=== PATIENT | female | born 1940 | race Caucasian/White ===

== ENCOUNTER 2018-08-12 08:47 | Outpatient (CLI) | payer OTHER, MEDICAID ==
[~2018-08-12 08:47] MED LIST: ACT35 PO; ASPI-858 PO; CLOP75TA2 PO; COR25 PO; EXEN10PE4 PO; EZET10TA PO; FURO80TA86 PO; LANS30CA53 PO; LANTUS INSULIN SQ; LIP20 PO; LOSA50TA3 PO; MAGN84TA4 PO; NITR0.4T13 SL; OMEG1CAP48 PO; REGULAR INSULIN SQ; SPIR25TA6 PO; TRICOR PO
[2018-08-12] MEDS ORDERED: BARIUM SULFATE 135 ML SUSP.RECON (E-Z-HD) PO ONE (09:12)
== END 2018-08-12 21:19 | disposition home or self-care (01) ==
LOC: SRD 08:47
PROVIDERS: ATTEND Internal Medicine
DX: K22.4 Dyskinesia of esophagus (principal); K44.9 Diaphragmatic hernia without obstruction or gangrene
CPT/HCPCS: 74220-TC

== ENCOUNTER 2019-10-24 14:50 | Emergency (ER) | payer OTHER, MEDICAID ==
[~2019-10-24] VITALS: Ht 152.4 cm; Wt 54.4 kg
[~2019-10-24 14:50] MED LIST changes: -ACT35 PO; +ALEN10TA7 PO; +ALPR0.5T8 PO; +ASPI-1153 PO; -ASPI-858 PO; +BISA-79 PO; -CLOP75TA2 PO; -COR25 PO; +DONE10TA44 PO; +EMPA10TA PO; -EXEN10PE4 PO; -EZET10TA PO; +FER300L PO; +FURO-150 PO; -FURO80TA86 PO; +ISO10 PO; -LANS30CA53 PO; -LANTUS INSULIN SQ; +LEVO88TA5 PO; -LIP20 PO; +LIP40 PO; -LOSA50TA3 PO; -MAGN84TA4 PO; +MECL12.584 PO; +METO25TA3 PO; -NITR0.4T13 SL; -OMEG1CAP48 PO; +OXYB5TAB11 PO; -REGULAR INSULIN SQ; +SACU1TAB PO; +SERT50TA PO; +SSREG SUBCUT; -TRICOR PO
--- NOTE | 2019-10-24 14:50 | NUR ---
BROUGHT BACK TO BED #7 AND TRIAGED .REPORT GIVEN TO GUNNAR
[2019-10-24 15:05] VITALS: BP_SYST 138
--- NOTE | 2019-10-24 15:10 | NUR ---
RECEIVED AND IN ROOM, SANDRA TO ASSUME CARE.
--- NOTE | 2019-10-24 15:21 | NUR ---
UP AMBULATING TO BATHROOM, STEADY GAIT W/USE OF CANE
--- NOTE | 2019-10-24 15:35 | NUR ---
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
--- NOTE | 2019-10-24 15:36 | NUR ---
C/O FREQUENT FALLS WITH HEADACHE, PT CONCERNED FOR DIZZINESS AND FALLING, ALERT, CALM, RESP UNLABORED, SKIN WARM AND DRY. COMMUNICATES CLEARLY, NAD
--- NOTE | 2019-10-24 15:45 | NUR ---
ALERT, CALM, RESP UNLABORED, COMMUNICATES CLEARLY, NO DISTRESS OBSERVED
--- NOTE | 2019-10-24 16:56 | NUR ---
BACK FROM CT. STATES FEELING BETTER, RESP UNLABORED, SKIN WARM AND DRY
--- NOTE | 2019-10-24 17:48 | NUR ---
Patient given written and verbal discharge instructions and verbalizes understanding. ER MD discussed with patient the results and treatment provided. Patient in stable condition. ID arm band removed. Rx of IBU given. Patient educated on pain management and to follow up with PMD. Pain Scale 2/10 Opportunity for questions provided and answered. Medication side effect fact sheet provided.
[2019-10-24 17:49] VITALS: BP_SYST 129
[2019-10-24] MEDS ORDERED: methylPREDNISolone SOD SUCC/PF 62.5 MG/ML VIAL IVP SCH (18:00)
== END 2019-10-24 17:48 | disposition home or self-care (01) ==
LOC: SED 14:50
DX: S09.90XA Unspecified injury of head, initial encounter (principal); J44.9 Chronic obstructive pulmonary disease, unspecified; E11.9 Type 2 diabetes mellitus without complications; Z79.899 Other long term (current) drug therapy; Z79.82 Long term (current) use of aspirin; Z79.4 Long term (current) use of insulin; W18.39XA Other fall on same level, initial encounter; Y93.89 Activity, other specified; Y92.89 Other specified places as the place of occurrence of the external cause; Y99.8 Other external cause status
CPT/HCPCS: 70450-TC; 81002; 99284

== ENCOUNTER 2019-12-18 15:05 | Emergency (ER) | payer OTHER, MEDICAID ==
[~2019-12-18] VITALS: Ht 154.9 cm; Wt 54.4 kg
[~2019-12-18 15:05] MED LIST changes: +ALEN10TA25 PO; -ALEN10TA7 PO; -ASPI-1153 PO; +ASPI-1393 PO; +MECL-174 PO; -MECL12.584 PO; -OXYB5TAB11 PO; +OXYB5TAB16 PO
[2019-12-18 15:09] VITALS: BP_SYST 124
[2019-12-18 16:16] LABS: BASOPHILS % (AUTO) 0.8 % (0.0-2.0); EOSINOPHILS # (AUTO) 0.1 K/uL (0.0-0.4); EOSINOPHILS % (AUTO) 1.6 % (0.0-4.0); HEMATOCRIT 39.8 % (36-48); HEMOGLOBIN 13.2 g/dL (12.0-16.0); LYMPHOCYTES # (AUTO) 1.1 K/uL (1.0-5.5); LYMPHOCYTES % (AUTO) 22.7 % (20.5-51.5); MEAN CORPUSCULAR HEMOGLOBIN 30 pg (27-31); MEAN CORPUSCULAR HGB CONC 33 % (32-36); MEAN CORPUSCULAR VOLUME 91 fL (79.0-98.0); MONOCYTES # (AUTO) 0.3 K/uL (0.0-1.0); MONOCYTES % (AUTO) 6.4 % (1.7-9.3); NEUTROPHILS # (AUTO) 3.3 K/uL (1.8-7.7); NEUTROPHILS % (AUTO) 68.5 % (40.0-70.0); PLATELET COUNT (AUTO) 120 K/uL (130-430); RED BLOOD CELL COUNT(AUTO) 4.37 MIL/uL (4.2-6.2); RED CELL DISTRIBUTION WIDTH 13.5 % (9.0-15.0); WHITE BLOOD COUNT (AUTO) 4.8 K/uL (4.8-10.8)
[2019-12-18 16:45] LABS: ANION GAP 7 (5-15); CALCIUM 8.7 mg/dL (8.4-11.0); CHLORIDE 97 mmol/L (98-107); POTASSIUM 3.8 mmol/L (3.5-5.1); SODIUM SERUM 135 mmol/L (136-145); UREA NITROGEN, BLOOD 26 mg/dL (8-21)
[2019-12-18] MEDS ORDERED: INSULIN REGULAR, HUMAN 10 UNITS/0.1 ML INJ SUBCUT ONE (16:45)
[2019-12-18 16:51] LABS: ALANINE AMINOTRANSFERASE 21 U/L (12-78); ALBUMIN 3.7 g/dL (3.4-4.8); ASPARTATE AMINOTRANSFERASE 20 U/L (10-37); TOTAL BILIRUBIN 0.4 mg/dL (0.0-1.0)
[2019-12-18 16:56] LABS: GLUCOSE 427 mg/dL (70-99)
[2019-12-18 17:12] LABS: PROTHROMBIN TIME 10.2 SECS (9.5-12.5)
[2019-12-18] MEDS ORDERED: INSULIN REGULAR, HUMAN 10 UNITS/0.1 ML INJ ONE (17:33)
[2019-12-18 18:35] VITALS: BP_SYST 122
== END 2019-12-18 18:36 | disposition home or self-care (01) ==
LOC: SED 15:05
DX: R09.89 Other specified symptoms and signs involving the circulatory and respiratory systems (principal); J44.9 Chronic obstructive pulmonary disease, unspecified; E11.65 Type 2 diabetes mellitus with hyperglycemia; Z95.0 Presence of cardiac pacemaker; Z85.9 Personal history of malignant neoplasm, unspecified; Z86.73 Personal history of transient ischemic attack (TIA), and cerebral infarction without residual deficits; Z79.899 Other long term (current) drug therapy; Z79.82 Long term (current) use of aspirin; Z79.4 Long term (current) use of insulin
CPT/HCPCS: 36415; 71045; 80053; 82009; 82962; 83880; 84145; 84484; 85025; 85610; 85730; 93005; 99285; J1815

== ENCOUNTER 2020-06-01 05:21 | Inpatient (IN) | payer OTHER, SELFPAY ==
[~2020-06-01] VITALS: Ht 149.9 cm; Wt 54.0 kg
[~2020-06-01 05:21] MED LIST changes: -MECL-174 PO; +MECL-225 PO
[2020-06-01 05:33] VITALS: BP_SYST 150
[2020-06-01 05:46] LABS: BASOPHILS # (AUTO) 0.1 K/uL (0.0-0.2); BASOPHILS % (AUTO) 0.9 % (0.0-2.0); EOSINOPHILS # (AUTO) 0.1 K/uL (0.0-0.4); EOSINOPHILS % (AUTO) 1.5 % (0.0-4.0); HEMATOCRIT 43.4 % (36-48); HEMOGLOBIN 14.8 g/dL (12.0-16.0); LYMPHOCYTES # (AUTO) 1.5 K/uL (1.0-5.5); LYMPHOCYTES % (AUTO) 23.4 % (20.5-51.5); MEAN CORPUSCULAR HEMOGLOBIN 31 pg (27-31); MEAN CORPUSCULAR HGB CONC 34 % (32-36); MEAN CORPUSCULAR VOLUME 89 fL (79.0-98.0); MONOCYTES # (AUTO) 0.5 K/uL (0.0-1.0); MONOCYTES % (AUTO) 7.6 % (1.7-9.3); NEUTROPHILS # (AUTO) 4.1 K/uL (1.8-7.7); NEUTROPHILS % (AUTO) 66.6 % (40.0-70.0); PLATELET COUNT (AUTO) 151 K/uL (130-430); RED BLOOD CELL COUNT(AUTO) 4.86 MIL/uL (4.2-6.2); RED CELL DISTRIBUTION WIDTH 13.7 % (9.0-15.0); WHITE BLOOD COUNT (AUTO) 6.2 K/uL (4.8-10.8)
[2020-06-01 05:59] LABS: ANION GAP 9 (5-15); CHLORIDE 99 mmol/L (98-107); CREATININE 0.85 mg/dL (0.55-1.30); GLUCOSE 358 mg/dL (70-99); SODIUM SERUM 139 mmol/L (136-145); UREA NITROGEN, BLOOD 17 mg/dL (8-21)
[2020-06-01 06:03] LABS: PROTHROMBIN TIME 9.9 SECS (9.5-12.5)
[2020-06-01 06:15] LABS: ALANINE AMINOTRANSFERASE 28 U/L (12-78); ALBUMIN 4.7 g/dL (3.4-4.8); ASPARTATE AMINOTRANSFERASE 22 U/L (10-37); FREE T4 (FREE THYROXINE) 1.1 ng/dl (0.8-1.5); THYROID STIMULATING HORMONE 2.89 uIu/mL (0.36-3.74); TOTAL BILIRUBIN 0.8 mg/dL (0.0-1.0)
[2020-06-01 06:19] LABS: ALCOHOL, BLOOD < 3 mg/dL (<10)
[2020-06-01] MEDS ORDERED: TRAM50TA PO (06:19)
[2020-06-01] MEDS ORDERED: VITD2000 PO (06:19)
[2020-06-01] MEDS ORDERED: MIRT15TA7 PO (06:19)
[2020-06-01] MEDS ORDERED: RANO500T2 PO (06:19)
[2020-06-01] MEDS ORDERED: NPH INSULIN SUBCUT (06:19)
[2020-06-01] MEDS ORDERED: INSULIN REGULAR, HUMAN 10 UNITS/0.1 ML INJ IVP ONE (07:00)
[2020-06-01 07:13] LABS: BILIRUBIN,URINE NEGATIVE (NEGATIVE); CLARITY/URINE CLEAR (CLEAR); COLOR,URINE YELLOW (YELLOW); GLUCOSE,URINE 3+ (NEGATIVE); KETONES,URINE TRACE (NEGATIVE); LEUKOCYTE ESTERASE ,URINE NEGATIVE (NEGATIVE); NITRITE, URINE NEGATIVE (NEGATIVE); PH,URINE 5.5 (5.0-8.0); PROTEIN URINE TRACE (NEGATIVE); UROBILINOGEN,URINE 0.2 (0.2-1.0)
[2020-06-01 07:18] LABS: BLOOD, URINE TRACE (NEGATIVE)
[2020-06-01 07:21] LABS: BARBITURATE, URINE NEGATIVE (NEG <=200); BENZODIAZEPINE, URINE NEGATIVE (NEG <=150); CANNABINOID, URINE NEGATIVE (NEG <=50); COCAINE, URINE NEGATIVE (NEG <=150); METHAMPHETAMINES SCREEN,URINE NEGATIVE (NEG <=500); OPIATE, URINE NEGATIVE (NEG <=100); PHENCYCLIDINE SCREEN,URINE NEGATIVE (NEG <=25); UR TRICYCLIC ANTIDEPRESSANTS NEGATIVE (NEG <=300); URINE AMPHETAMINE NEGATIVE (NEG <=500); URINE METHADONE NEGATIVE (NEG <=200); URINE OXYCODONE SCREEN NEGATIVE (NEG <=100); URINE PROPOXYPHENE SCREEN NEGATIVE (NEG <=300)
[2020-06-01 07:30] LABS: BACTERIA,URINE FEW /HPF (None Seen); WBC,URINE 0-3 /HPF (0-3)
[2020-06-01] MEDS ORDERED: GLUCOSE (DEXTROSE) ORAL GEL -Adults PO PRN (08:15)
[2020-06-01] MEDS ORDERED: D5W 1,000 ML IV PRN (08:15)
[2020-06-01] MEDS ORDERED: DEXTROSE 50%-WATER 50 ML DISP.SYRIN IVP PRN (08:15)
[2020-06-01 09:00] VITALS: BP_SYST 132
[2020-06-01] MEDS: 0.45% NACL 1,000 ML IV SCH ×2 (10:22→22:18)
[2020-06-01] MEDS: INSULIN REGULAR, HUMAN 100 UNITS/ML, 10 ML VIAL (humuLIN R) SUBCUT PRN ×2 (12:29→22:24)
[2020-06-01] MEDS ORDERED: AMIT10TA6 PO (14:41)
[2020-06-01] MEDS ORDERED: SENN-234 PO (14:41)
[2020-06-01] MEDS ORDERED: ALPRAZOLAM 0.25 MG PO PRN (15:15)
[2020-06-01] MEDS ORDERED: traMADol HCL HCL 50 MG TABLET (ULTRAM) PO SCH (15:15)
[2020-06-01] MEDS ORDERED: SENNOSIDES/DOCUSATE SODIUM 1 TAB TABLET(SENOKOT-S) PO PRN (15:15)
[2020-06-01] MEDS ORDERED: INSULIN REGULAR, HUMAN 100 UNITS/ML, 10 ML VIAL (humuLIN R) SUBCUT PRN (15:30)
[2020-06-01 18:36] VITALS: BP_SYST 130
[2020-06-01 20:00] VITALS: BP_SYST 135
[2020-06-01] MEDS: RANOLAZINE 500 MG TAB.SR.12H PO SCH (22:16)
[2020-06-01] MEDS: METOPROLOL SUCCINATE 25 MG TAB.SR.24H (TOPROL XL) PO SCH (22:16)
[2020-06-01] MEDS: ISOSORBIDE DINITRATE 10 MG TABLET (ISORDIL) PO SCH (22:17)
[2020-06-01] MEDS: OXYBUTYNIN CHLORIDE 5 MG TABLET PO SCH (22:18)
[2020-06-01] MEDS: AMITRIPTYLINE HCL 10 MG TABLET (ELAVIL) PO SCH (22:18)
[2020-06-01] MEDS: ATORVASTATIN 20 MG TABLET PO SCH (22:18)
[2020-06-01] MEDS: SACUBITRIL/VALSARTAN 24 MG-26 MG 1 TABLET PO SCH (22:20)
[2020-06-01] MEDS: ENOXAPARIN SODIUM 40 MG/0.4 ML SYRINGE SUBCUT SCH (22:28)
[2020-06-02 00:48] VITALS: BP_SYST 118
[2020-06-02] MEDS: INSULIN REGULAR, HUMAN 100 UNITS/ML, 10 ML VIAL (humuLIN R) SUBCUT PRN ×3 (06:33→17:19)
[2020-06-02 08:00] VITALS: BP_SYST 137
[2020-06-02] MEDS: FERROUS SULFATE 300 MG/5 ML UDC PO SCH (09:36)
[2020-06-02] MEDS: ASPIRIN 81 MG TABLET(ECOTRIN) PO SCH (09:36)
[2020-06-02] MEDS: ISOSORBIDE DINITRATE 10 MG TABLET (ISORDIL) PO SCH ×3 (09:37→21:47)
[2020-06-02] MEDS: SPIRONOLACTONE 25 MG TABLET (ALDACTONE) PO SCH (09:37)
[2020-06-02] MEDS: DONEPEZIL HCL 5 MG TABLET (ARICEPT) PO SCH (09:37)
[2020-06-02] MEDS: RANOLAZINE 500 MG TAB.SR.12H PO SCH ×3 (09:48→21:48)
[2020-06-02] MEDS: LEVOTHYROXINE SODIUM 0.088 MG TABLET PO SCH (09:51)
[2020-06-02] MEDS: SACUBITRIL/VALSARTAN 24 MG-26 MG 1 TABLET PO SCH ×3 (09:51→21:49)
[2020-06-02] MEDS ORDERED: NON-FORMULARY MEDICATION (Empagliflozin (Jardiance) 10 MG) PO SCH (10:00)
[2020-06-02 11:50] VITALS: BP_SYST 124
[2020-06-02 16:00] VITALS: BP_SYST 141
[2020-06-02] MEDS: 0.45% NACL 1,000 ML IV SCH ×2 (17:20→22:05)
[2020-06-02 20:00] VITALS: BP_SYST 126
[2020-06-02] MEDS: ATORVASTATIN 20 MG TABLET PO SCH ×2 (21:00→21:48)
[2020-06-02] MEDS: AMITRIPTYLINE HCL 10 MG TABLET (ELAVIL) PO SCH ×2 (21:00→21:47)
[2020-06-02] MEDS: OXYBUTYNIN CHLORIDE 5 MG TABLET PO SCH ×2 (21:00→21:48)
[2020-06-02] MEDS: MIRTAZAPINE 15 MG TABLET PO SCH ×2 (21:00→21:48)
[2020-06-02] MEDS: METOPROLOL SUCCINATE 25 MG TAB.SR.24H (TOPROL XL) PO SCH ×2 (21:00→21:48)
[2020-06-02] MEDS: ENOXAPARIN SODIUM 40 MG/0.4 ML SYRINGE SUBCUT SCH (21:49)
[2020-06-03 08:00] VITALS: BP_SYST 130
[2020-06-03] MEDS: DONEPEZIL HCL 5 MG TABLET (ARICEPT) PO SCH (09:37)
[2020-06-03] MEDS: FERROUS SULFATE 300 MG/5 ML UDC PO SCH (09:37)
[2020-06-03] MEDS: RANOLAZINE 500 MG TAB.SR.12H PO SCH ×2 (09:38→21:50)
[2020-06-03] MEDS: ISOSORBIDE DINITRATE 10 MG TABLET (ISORDIL) PO SCH ×2 (09:38→21:47)
[2020-06-03] MEDS: SPIRONOLACTONE 25 MG TABLET (ALDACTONE) PO SCH (09:38)
[2020-06-03] MEDS: ASPIRIN 81 MG TABLET(ECOTRIN) PO SCH (09:38)
[2020-06-03] MEDS: SACUBITRIL/VALSARTAN 24 MG-26 MG 1 TABLET PO SCH ×2 (09:38→21:53)
[2020-06-03] MEDS: LEVOTHYROXINE SODIUM 0.088 MG TABLET PO SCH (09:38)
[2020-06-03 11:37] VITALS: BP_SYST 126
[2020-06-03 11:39] VITALS: BP_SYST 106
[2020-06-03] MEDS: INSULIN REGULAR, HUMAN 100 UNITS/ML, 10 ML VIAL (humuLIN R) SUBCUT PRN ×2 (11:39→22:00)
[2020-06-03 16:00] VITALS: BP_SYST 118
[2020-06-03 20:00] VITALS: BP_SYST 141
[2020-06-03] MEDS: OXYBUTYNIN CHLORIDE 5 MG TABLET PO SCH (21:46)
[2020-06-03] MEDS: METOPROLOL SUCCINATE 25 MG TAB.SR.24H (TOPROL XL) PO SCH (21:49)
[2020-06-03] MEDS: AMITRIPTYLINE HCL 10 MG TABLET (ELAVIL) PO SCH (21:50)
[2020-06-03] MEDS: ENOXAPARIN SODIUM 40 MG/0.4 ML SYRINGE SUBCUT SCH (21:50)
[2020-06-03] MEDS: ATORVASTATIN 20 MG TABLET PO SCH (21:50)
[2020-06-03] MEDS: MIRTAZAPINE 15 MG TABLET PO SCH (22:03)
[2020-06-04] VITALS (7 sets, daily range): BP systolic 117–146
[2020-06-04] MEDS: 0.45% NACL 1,000 ML IV SCH (04:52)
[2020-06-04 06:24] LABS: BASOPHILS % (AUTO) 0.7 % (0.0-2.0); EOSINOPHILS # (AUTO) 0.2 K/uL (0.0-0.4); EOSINOPHILS % (AUTO) 2.4 % (0.0-4.0); HEMATOCRIT 38.4 % (36-48); HEMOGLOBIN 12.8 g/dL (12.0-16.0); LYMPHOCYTES % (AUTO) 30.4 % (20.5-51.5); MEAN CORPUSCULAR HEMOGLOBIN 31 pg (27-31); MEAN CORPUSCULAR HGB CONC 33 % (32-36); MEAN CORPUSCULAR VOLUME 91 fL (79.0-98.0); MONOCYTES # (AUTO) 0.5 K/uL (0.0-1.0); MONOCYTES % (AUTO) 8.4 % (1.7-9.3); NEUTROPHILS # (AUTO) 3.8 K/uL (1.8-7.7); NEUTROPHILS % (AUTO) 58.1 % (40.0-70.0); PLATELET COUNT (AUTO) 120 K/uL (130-430); RED CELL DISTRIBUTION WIDTH 13.7 % (9.0-15.0); WHITE BLOOD COUNT (AUTO) 6.5 K/uL (4.8-10.8)
[2020-06-04 06:52] LABS: ANION GAP 8 (5-15); CALCIUM 8.7 mg/dL (8.4-11.0); CHLORIDE 107 mmol/L (98-107); CREATININE 0.69 mg/dL (0.55-1.30); GLUCOSE 162 mg/dL (70-99); POTASSIUM 4.2 mmol/L (3.5-5.1); SODIUM SERUM 142 mmol/L (136-145); UREA NITROGEN, BLOOD 11 mg/dL (8-21)
[2020-06-04] MEDS ORDERED: ALENDRONATE SODIUM 10 MG TABLET (FOSAMAX) PO SCH (09:00)
[2020-06-04] MEDS ORDERED: CHOLECALCIFEROL (VITAMIN D3) 2,000 UNIT TABLET PO SCH (09:00)
[2020-06-04] MEDS: RANOLAZINE 500 MG TAB.SR.12H PO SCH ×2 (09:40→22:05)
[2020-06-04] MEDS: ISOSORBIDE DINITRATE 10 MG TABLET (ISORDIL) PO SCH ×2 (09:41→22:06)
[2020-06-04] MEDS: SACUBITRIL/VALSARTAN 24 MG-26 MG 1 TABLET PO SCH ×2 (09:44→22:08)
[2020-06-04] MEDS: FERROUS SULFATE 300 MG/5 ML UDC PO SCH (09:44)
[2020-06-04] MEDS: SPIRONOLACTONE 25 MG TABLET (ALDACTONE) PO SCH (09:45)
[2020-06-04] MEDS: ASPIRIN 81 MG TABLET(ECOTRIN) PO SCH (09:46)
[2020-06-04] MEDS: DONEPEZIL HCL 5 MG TABLET (ARICEPT) PO SCH (09:46)
[2020-06-04] MEDS: LEVOTHYROXINE SODIUM 0.088 MG TABLET PO SCH (09:49)
[2020-06-04] MEDS: INSULIN REGULAR, HUMAN 100 UNITS/ML, 10 ML VIAL (humuLIN R) SUBCUT PRN (11:55)
[2020-06-04] MEDS: MIRTAZAPINE 15 MG TABLET PO SCH (22:04)
[2020-06-04] MEDS: AMITRIPTYLINE HCL 10 MG TABLET (ELAVIL) PO SCH (22:04)
[2020-06-04] MEDS: ATORVASTATIN 20 MG TABLET PO SCH (22:05)
[2020-06-04] MEDS: OXYBUTYNIN CHLORIDE 5 MG TABLET PO SCH (22:06)
[2020-06-04] MEDS: METOPROLOL SUCCINATE 25 MG TAB.SR.24H (TOPROL XL) PO SCH (22:07)
[2020-06-04] MEDS: ENOXAPARIN SODIUM 40 MG/0.4 ML SYRINGE SUBCUT SCH (22:12)
[2020-06-05 00:16] VITALS: BP_SYST 121
[2020-06-05] MEDS: 0.45% NACL 1,000 ML IV SCH ×2 (04:57→12:00)
[2020-06-05] MEDS: INSULIN REGULAR, HUMAN 100 UNITS/ML, 10 ML VIAL (humuLIN R) SUBCUT PRN ×2 (06:34→11:38)
[2020-06-05 08:00] VITALS: BP_SYST 116
[2020-06-05] MEDS: SPIRONOLACTONE 25 MG TABLET (ALDACTONE) PO SCH (09:31)
[2020-06-05] MEDS: DONEPEZIL HCL 5 MG TABLET (ARICEPT) PO SCH (09:32)
[2020-06-05] MEDS: RANOLAZINE 500 MG TAB.SR.12H PO SCH (09:32)
[2020-06-05] MEDS: ASPIRIN 81 MG TABLET(ECOTRIN) PO SCH (09:32)
[2020-06-05] MEDS: LEVOTHYROXINE SODIUM 0.088 MG TABLET PO SCH (09:33)
[2020-06-05] MEDS: ISOSORBIDE DINITRATE 10 MG TABLET (ISORDIL) PO SCH (09:33)
[2020-06-05] MEDS: SACUBITRIL/VALSARTAN 24 MG-26 MG 1 TABLET PO SCH (09:34)
[2020-06-05] MEDS: FERROUS SULFATE 300 MG/5 ML UDC PO SCH (09:35)
[2020-06-05 16:30] VITALS: BP_SYST 122
[2020-06-05 16:37] VITALS: BP_SYST 122
== END 2020-06-05 17:30 | disposition home or self-care (01) | DRG 637 ==
LOC: SED 05:21 → STU 07:58
PROVIDERS: ADMIT Family Medicine; ATTEND Family Medicine
DX: E11.649 Type 2 diabetes mellitus with hypoglycemia without coma (principal); G93.41 Metabolic encephalopathy; F03.90 Unspecified dementia, unspecified severity, without behavioral disturbance, psychotic disturbance, mood disturbance, and anxiety; I10 Essential (primary) hypertension; M81.0 Age-related osteoporosis without current pathological fracture; E03.9 Hypothyroidism, unspecified; M19.90 Unspecified osteoarthritis, unspecified site; Z20.822 Contact with and (suspected) exposure to COVID-19; E78.00 Pure hypercholesterolemia, unspecified; Z79.82 Long term (current) use of aspirin; Z79.899 Other long term (current) drug therapy; E11.65 Type 2 diabetes mellitus with hyperglycemia
CPT/HCPCS: 36415; 36600; 70450-TC; 71045; 72125-TC; 76376; 80048; 80053; 80307; 81000; 82140; 82550; 82803-TC; 82962; 83880; 84439; 84443; 84484; 85025; 85610-TC; 85730-TC; 86710; 93005; 96374; 97116-GP; 97530-GP; 99285; G0378; G0482; J1650; J1815